=== PATIENT | male | born 1965 | race Caucasian/White ===

== ENCOUNTER 2022-05-22 06:44 | Inpatient (IN) | payer OTHER ==
[~2022-05-22] VITALS: Ht 175.3 cm; Wt 69.0 kg
[2022-05-22 07:54] LABS: BASOPHILS ABSOLUTE AUTO 0.05 K/mm3 (0.00-0.23); BASOPHILS PERCENT AUTO 1 % (0-2); EOSINOPHILS ABSOLUTE AUTO 0.06 K/mm3 (0.00-0.68); EOSINOPHILS PERCENT AUTO 1 % (0-6); Hematocrit 44.4 % (37.0-53.0); Hemoglobin 15.5 g/dL (13.5-17.5); IMMATURE GRAN ABSOLUTE AUTO 0.03 K/mm3 (0.00-0.10); IMMATURE GRAN PERCENT AUTO 0 % (0-1); LYMPHOCYTES ABSOLUTE AUTO 1.57 K/mm3 (0.84-5.20); LYMPHOCYTES PERCENT AUTO 15 % (21-46); MONOCYTES ABSOLUTE AUTO 0.57 K/mm3 (0.16-1.47); MONOCYTES PERCENT AUTO 6 % (4-13); Mean Corpuscular HGB 30.1 pg (26.0-34.0); Mean Corpuscular HGB Conc 34.9 g/dL (31.5-36.5); Mean Corpuscular Volume 86 fL (80-100); Mean Platelet Volume 9.1 fL (9.1-12.4); NEUTROPHILS ABSOLUTE AUTO 8.13 K/mm3 (1.96-9.15); NEUTROPHILS PERCENT AUTO 78 % (41-73); Platelet Count 243 K/mm3 (150-400); RDW Coefficient Variation 12.5 % (11.7-14.2); RDW Standard Deviation 39.5 fL (35.1-46.3); Red Blood Cell Count 5.15 M/mm3 (4.30-5.90); White Blood Cell Count 10.41 K/mm3 (4.00-11.30)
[2022-05-22 08:10] LABS: Chloride (POC) 103 mmol/L (98-108); Glucose (ISTAT POC) 124 mg/dL (70-99); Potassium (POC) 3.5 mmol/L (3.5-5.5); Sodium (POC) 139 mmol/L (135-148); Total CO2 (POC) 27 mmol/L (21-32)
[2022-05-22 08:19] LABS: Albumin/Globulin Ratio 1.1 (0.8-1.8); Bilirubin, Total 0.4 mg/dL (0.1-1.0); Calcium, Blood 9.7 mg/dL (8.5-10.1); Creatinine, Blood 1.07 mg/dL (0.60-1.20); Globulin, Blood 3.6 g/dL (2.2-4.0); Potassium, Blood 3.8 mmol/L (3.5-5.5); Total Protein, Blood 7.6 g/dL (6.4-8.2)
--- NOTE | 2022-05-22 10:10 | NUR ---
ASSUMED CARE PT IS A&O X4, PLEASANT. SPO2 >92% ON RA; MAP >65, SBP IN THE 120-130'S. NO C/O OF CP, SOB, OR NAUSEA. NS @ 125MLS/HR. TR BAND FREE OF HEMATOMA; PREVIOUSLY OOZED AND 3CC OF AIR ADDED (TOTAL 11CC) PER CATH RN. 2 STENTS PLACED IN [employer] SUR[employer]YOR.
--- NOTE | 2022-05-22 10:52 | NUR ---
UPDATE HEMATOMA OBSERVED DURING REASSESSMENT. DR BATISTA AWARE AND ASSESSED/REPOSITIONED TR BAND. PRESSURE WAS APPLIED TO HEMATOMA PER [employer] INTEGRATION DEVELOPER. EXTREMITY DUSKY. PT STATES IT IS TINGLING, BUT HAS FEELING, ABSENT OF PAIN, AND <3 CAP REFILL.
[2022-05-22] MEDS ORDERED: VITAMIN D5000 UNIT PO (12:09)
[2022-05-22 12:15] LABS: CHOL/HDL RATIO 3.6; CPK Creatine Kinase 814 U/L (39-308); Cholesterol 203 mg/dL (50-200); HDL Cholesterol 57 mg/dL (>39); LDL/HDL RATIO 2.4; Low Density Lipoprotein Chol 135 mg/dL (0-110); Triglycerides 56 mg/dL (30-160); Very Low Density Lipoprot Chol 11 mg/dL (6-32)
[2022-05-22 12:28] LABS: Creatine Kinase MB 62.8 ng/mL (0.0-3.6); Creatine Kinase MB Index 7.7 (0.0-4.0)
--- NOTE | 2022-05-22 15:39 | NUR ---
UPDATE TR BAND REMOVED BY NELIA ROSENTHAL. NO NEW HEMATOMA/BRUISING/OOZING NOTED BY THIS RN.
--- NOTE | 2022-05-22 17:30 | NUR ---
TRANSFER OF CARE PT MOVED TO PCU IN WHEELCHAIR.
--- NOTE | 2022-05-22 18:00 | NUR ---
UPDATE PT ARRIVED TO UNIT VIA WC. PT UP INDEPENDENT TO BATHROOM UPON ARRIVAL. PT ALERT AND ORIENTED. VS STABLE. PT DENIES ANY PAIN. HR NSR 90'S. PT UP TO CHAIR TO EAT DINNER. PT ORIENTED TO ROOM AND UNIT. RIGHT RADIAL SITE WITH NO SIGNS OF BLEEDING, BRUISING, OR HEMATOMA. ARM BOARD IN PLACE AND PT EDUCATED ON RESTRICTIONS. WILL CONTINUE TO MONITOR AND REPORT TO ONCOMING RN
[2022-05-22 19:19] LABS: Creatine Kinase MB 80.8 ng/mL (0.0-3.6); Creatine Kinase MB Index 6.7 (0.0-4.0)
--- NOTE | 2022-05-22 22:52 | NUR ---
ASSUMPTION OF CARE THIS RN ASSUMED CARE OF PT AT 1900. PT PLEASANT AND COOPERATIVE UPON INTERACTION. PT A&0 X4. VS; BP 115/78, SR W/HR 71, RR 16, SPO2 97% ON RA, 98.9 F. PT DENIES CP OR PRESSURE, DENIES SOB OR PALPIATIONS. PT DENIES ANY DIZZINESS OR LIGHTHEADNESS. PT STATES "HE FEELS SO MUCH BETTER AND IS GLAD HE MADE IT HERE IN TIME"R RADIAL SITE FULLY RECOVERED AND ARMBOARD IN [place]. PER REPORT THERE IS A SMALL HEMATOMA ABOVE SITE; IS OUTLINED WITH MARKER, PROVIDER IS AWARE AND HAS VISUALLY SEEN IT. PER REPORT BY DAYSHIFT RN, NO CHANGES WITH IT. THIS RN VISUALLY INSPECTED AND PALPATED, NOTED A LITTLE DISCOLORATION/BRUISING. PT DENIES PAIN, BUT REPORTS MILD TENDERNESS ON HEMATOMA. PERFUSION AND CAP REFILL TO HAND IS GOOD. PT EXPRESSES NO CONCERNS AT THIS TIME. CALL LIGHT IN REACH AND PT RESTING.
[2022-05-23 02:01] LABS: BASOPHILS ABSOLUTE AUTO 0.04 K/mm3 (0.00-0.23); BASOPHILS PERCENT AUTO 1 % (0-2); EOSINOPHILS ABSOLUTE AUTO 0.16 K/mm3 (0.00-0.68); EOSINOPHILS PERCENT AUTO 2 % (0-6); Hemoglobin 15.2 g/dL (13.5-17.5); IMMATURE GRAN ABSOLUTE AUTO 0.02 K/mm3 (0.00-0.10); IMMATURE GRAN PERCENT AUTO 0 % (0-1); LYMPHOCYTES ABSOLUTE AUTO 1.66 K/mm3 (0.84-5.20); LYMPHOCYTES PERCENT AUTO 19 % (21-46); MONOCYTES PERCENT AUTO 8 % (4-13); Mean Corpuscular HGB 30.5 pg (26.0-34.0); Mean Corpuscular HGB Conc 35.3 g/dL (31.5-36.5); Mean Corpuscular Volume 86 fL (80-100); NEUTROPHILS ABSOLUTE AUTO 6.19 K/mm3 (1.96-9.15); NEUTROPHILS PERCENT AUTO 71 % (41-73); Platelet Count 236 K/mm3 (150-400); RDW Coefficient Variation 12.8 % (11.7-14.2); RDW Standard Deviation 40.3 fL (35.1-46.3); Red Blood Cell Count 4.98 M/mm3 (4.30-5.90); White Blood Cell Count 8.77 K/mm3 (4.00-11.30)
[2022-05-23 02:21] LABS: Bun/Creatinine Ratio 14.9 (12.0-20.0); Calcium, Blood 9.6 mg/dL (8.5-10.1); Creatinine, Blood 0.94 mg/dL (0.60-1.20)
[2022-05-23 02:53] LABS: Creatine Kinase MB 40.6 ng/mL (0.0-3.6)
--- NOTE | 2022-05-23 05:33 | NUR ---
SHIFT SUMMARY PT SLEPT THROUGHOUT SHIFT, UP TO USE RESTROOM INDEPENDENTLY. PT PLEASANT AND COOPERATIVE WITH CARE. VSS. PT DENIES CP, PRESSURE OR SOB. PT DENIES PALPITATIONS, DIZZINESS OR LIGHTHEADNESS. WHILE PT SLEEPING, HR DECREASED TO MID 50'S BUT PT DID NOT SUSTAIN. PT CONTINUES TO STATE HE IS "FEELING MUCH BETTER". EXPRESSES NO CONCERNS AT THIS TIME AND IS EAGER TO DISCHARGE. EKG COMPLETED PER ORDERS AND IS IN PT'S CHART. NO ACUTE CHANGES THROUGHOUT NIGHT. ARMBOARD IN PLACE TO R WRIST; SITE IS CLEAR OF SWELLING OR PAIN, NO CHANGES TO ALREADY KNOWN HEMATOMA, ALTHOUGH DOES SEEM TO HAVE SLIGHTLY IMPROVED. PT DENIES PAIN, TINGLING OR NUMBNESS, CAP REFILL IS GOOD.
[2022-05-23] MEDS ORDERED: ASPI81CH PO (13:13)
[2022-05-23] MEDS ORDERED: ATOR80 PO (13:14)
[2022-05-23] MEDS ORDERED: CLOP75 PO (13:14)
[2022-05-23] MEDS ORDERED: LISI20 PO (13:14)
[2022-05-23] MEDS ORDERED: SPIR25 PO (13:15)
[2022-05-23] MEDS ORDERED: METO50ER PO (13:15)
--- NOTE | 2022-05-23 16:22 | NUR ---
UPDATE VS STABLE. DISCHARGE INSTRUCTIONS PROVIDED TO PT. PT MEDICATED DR. SHAIKH ORDERED AND WILL DISCHARGE 1 HOUR AFTER IF VS STABLE. PT EDUCATED ON ALL MEDICATIONS.
--- NOTE | 2022-05-23 16:51 | NUR ---
UPDATE BP STABLE. PT TAKEN OUT BY WC
== END 2022-05-23 16:55 | disposition home or self-care (01) | DRG 247 ==
LOC: ER 06:44 → ICUW 08:08 → PCU 17:33
PROVIDERS: Emergency Medicine; ADMIT Internal Medicine Cardiovascular Disease
PROC: 027035Z Dilation of Coronary Artery, One Artery with Two Drug-eluting Intraluminal Devices, Percutaneous Approach (ICD-10-PCS; principal; 2022-05-22)
PROC: 4A023N7 Measurement of Cardiac Sampling and Pressure, Left Heart, Percutaneous Approach (ICD-10-PCS; 2022-05-22)
PROC: B210YZZ Fluoroscopy of Single Coronary Artery using Other Contrast (ICD-10-PCS; 2022-05-22)
PROC: B215YZZ Fluoroscopy of Left Heart using Other Contrast (ICD-10-PCS; 2022-05-22)
PROC: B240ZZ3 Ultrasonography of Single Coronary Artery, Intravascular (ICD-10-PCS; 2022-05-22)
DX: I21.09 ST elevation (STEMI) myocardial infarction involving other coronary artery of anterior wall (principal); J44.9 Chronic obstructive pulmonary disease, unspecified; E78.5 Hyperlipidemia, unspecified; I10 Essential (primary) hypertension; F12.10 Cannabis abuse, uncomplicated; Z87.891 Personal history of nicotine dependence; Z79.899 Other long term (current) drug therapy
CPT/HCPCS: 36415; 76937; 80047; 80048; 80053; 80061; 82550; 82553; 83036; 84443; 84484; 85014; 85025; 85347; 92978; 93005; 93010; 93458; 96374; 99152; 99153; 99285-25; A9270; C1725; C1753; C1769; C1874; C1887; C1894; C8929; C9606; J0461; J1644; J2060; J2250; J3010; J7030; J7050; Q9957; Q9967

== ENCOUNTER → 2024-08-27 | Outpatient (CLI) | payer OTHER ==
[~2024-08-27] MED LIST: ASPI81CH PO; ATOR80 PO; CLOP75 PO; LISI20 PO; METO50ER PO; SPIR25 PO; VITAMIN D5000 UNIT PO
[2024-08-27 12:09] LABS: Alanine Aminotransfer (ALT/SGP 37 U/L (12-78); Albumin, Blood 3.9 g/dL (3.4-5.0); Albumin/Globulin Ratio 1.2 (0.8-1.8); Alk Phos 96 U/L (50-136); Anion Gap 8 mmol/L (3-11); Aspartate Aminotrans (AST/SGOT 32 U/L (12-37); Bilirubin, Total 0.5 mg/dL (0.1-1.0); Blood Urea Nitrogen 20 mg/dL (8-24); Bun/Creatinine Ratio 22.1 (12.0-20.0); CO2, Blood 28 mmol/L (21-32); Calcium, Blood 9.3 mg/dL (8.5-10.1); Chloride, Blood 106 mmol/L (98-108); Creatinine, Blood 0.91 mg/dL (0.60-1.20); Globulin, Blood 3.3 g/dL (2.2-4.0); Glomerular Filtration Rate 98 (60-); Glucose, Blood 110 mg/dL (70-99); Sodium, Blood 138 mmol/L (136-145); Total Protein, Blood 7.2 g/dL (6.4-8.2)
== END | disposition home or self-care (01) ==
LOC: LAB 08:35 → LAB SHORT 08:35
PROVIDERS: Family Medicine
DX: Z12.5 Encounter for screening for malignant neoplasm of prostate (principal); Z79.899 Other long term (current) drug therapy
CPT/HCPCS: 80053; G0103

== ENCOUNTER → 2024-12-29 | Outpatient (CLI) | payer OTHER ==
[~2024-12-29] MED LIST changes: +HYDCHL12.5 PO
[2024-12-29 12:41] LABS: Alanine Aminotransfer (ALT/SGP 38.0 U/L (12-78); Albumin, Blood 4.0 g/dL (3.4-5.0); Albumin/Globulin Ratio 1.2 (0.8-1.8); Anion Gap 4.0 mmol/L (3-11); Aspartate Aminotrans (AST/SGOT 20.0 U/L (12-37); Bilirubin, Total 0.5 mg/dL (0.1-1.0); Blood Urea Nitrogen 23.0 mg/dL (8-24); CO2, Blood 31.0 mmol/L (21-32); Calcium, Blood 9.2 mg/dL (8.5-10.1); Chloride, Blood 106.0 mmol/L (98-108); Creatinine, Blood 0.94 mg/dL (0.60-1.20); Globulin, Blood 3.4 g/dL (2.2-4.0); Glucose, Blood 108.0 mg/dL (70-99); Potassium, Blood 4.0 mmol/L (3.5-5.5); Sodium, Blood 137.0 mmol/L (136-145); Total Protein, Blood 7.4 g/dL (6.4-8.2)
== END ==
LOC: LAB 08:45 → LAB SHORT 08:45
PROVIDERS: Family Medicine
DX: I10 Essential (primary) hypertension (principal)
CPT/HCPCS: 80053